=== PATIENT | female | born 1995 | race Asian ===

== ENCOUNTER → 2020-03-28 15:35 | Outpatient (CLI) | payer OTHER, SELFPAY ==
[2020-03-28 17:39] LABS: HIV 1 & 2 Ab/Ag 4th Gen Combo NEGATIVE (NEGATIVE)
== END ==
PROVIDERS: PCP Family Medicine; Referring Provider Family Medicine; Visit Provider Family Medicine
DX: Z34.82 Encounter for supervision of other normal pregnancy, second trimester (principal)
CPT/HCPCS: 36415; 87389

== ENCOUNTER → 2020-04-09 15:33 | Outpatient (CLI) | payer OTHER, SELFPAY ==
--- NOTE | 2020-04-09 15:35 | DI.US.S_ITS ---
PROCEDURE: US OB >= 14 WEEKS FETUS INDICATIONS: Anatomy US please OUTSIDE/PRIOR DATING DATA: Last menstrual period (LMP): 11/18/19 . LMP-based estimated date of delivery (MISAEL): 08/24/20 . First dating scan (date and location): 04/09/20 . Estimated date of delivery (MISAEL) from first dating scan: 08/24/20 . TECHNIQUE: Real-time scanning was performed of the fetus, with image documentation and biometric measurements. Endovaginal scanning: Not performed COMPARISON: None. FINDINGS: General: A single living intrauterine gestation is present. Presentation: Vertex. Placenta: Placental position is posterior , without previa. Amniotic fluid index: 16.7 cm, normal range is 5-24 cm. heart rate: 144 beats per minute. Maternal cervical canal: 5.2 cm long. Normal lower limit is 2.5 cm. biometrics: Biparietal diameter: 4.67 cm, 20 weeks 1 day Head circumference: 16.9 cm, 19 weeks 4 days Abdominal circumference: 14.8 cm, 20 weeks 1 day Femur length: 3.6 cm, 21 weeks 4 days Estimated gestational age from LMP: 20 weeks 3 days Composite gestational age from present scan: 20 weeks 3 days Estimated weight and percentile: 367 g, 57th percentile Measurement variability for biometric dating: +/- 7 days from 14 weeks to 15 weeks 6 days gestation, +/- 10 days from 16 weeks to 21 weeks 6 days gestation, +/- 2 weeks from 22 weeks to 27 weeks 6 days gestation, +/- 3 weeks for 28 weeks gestation or later. weight reference: 4500 g or EFW >90/95% is considered macrosomia or large for gestational age. EFW <10% is small for gestational age. EFW 5% or less is considered intra-uterine growth restriction. Anatomic survey: Neuro: Ventricles are non-dilated at less than 10 mm. Cisterna magna is normal at 3-11 mm. Cerebellum is normal in size and morphology. Nuchal skin fold: Normal at less than 6 mm between 14-21 weeks gestational age. Face: Nose and lips, facial profile are normal. Spine: No evidence for spina bifida. Heart: 4-chambered heart is present, with normal ventricular outflow tracts. Diaphragm: Diaphragm is intact. Stomach: Left-sided stomach is present. Kidneys: No hydronephrosis. Normal is less than 5 mm in 2nd trimester, less than 7 mm in 3rd trimester. Cord: 3-vessel cord has orthotopic insertion. Bladder: Normal in size. Extremities: All 4 extremities identified. IMPRESSION: Single living intrauterine fetus in vertex presentation with a gestational age of 20 weeks and 3 days, concordant with reported LMP as above Normal anatomic survey Dictated by: Jose Camejo M.D. on 04/10/2020 at 9:29 Approved by: Jose Camejo M.D. on 04/10/2020 at 9:40
== END ==
PROVIDERS: PCP Family Medicine; Referring Provider Family Medicine; Visit Provider Family Medicine
DX: Z34.82 Encounter for supervision of other normal pregnancy, second trimester (principal); Z3A.20 20 weeks gestation of pregnancy
CPT/HCPCS: 76811

== ENCOUNTER 2020-05-08 20:21 | Outpatient (CLI) | payer OTHER, SELFPAY | END 2020-05-08 21:35 | disposition home or self-care (01) | LOC: LABOR 20:26 → OB 05-09 09:25 | PROVIDERS: PCP Family Medicine; Referring Provider Family Medicine; Visit Provider Family Medicine | DX: O20.9 Hemorrhage in early pregnancy, unspecified (principal); R10.30 Lower abdominal pain, unspecified; Z3A.24 24 weeks gestation of pregnancy | CPT/HCPCS: 59025; G0378; G0379 ==

== ENCOUNTER → 2020-05-29 15:45 | Outpatient (CLI) | payer OTHER, SELFPAY ==
[2020-05-29 17:29] LABS: Add Manual Diff / Slide Review NO; Basophils Absolute Auto 0 /uL (0-100); Basophils Percent Auto 0.2 % (0-2); Eosinophils Absolute Auto 100 /uL (0-450); Eosinophils Percent Auto 0.8 % (2-4); Hematocrit 33.8 % (36-46); Hemoglobin 11.7 g/dL (12.0-16.0); Lymphocytes Absolute Auto 1600 /uL (1100-4500); Lymphocytes Percent Auto 15.9 % (25-40); Mean Corpuscular HGB Conc 34.8 % (30-36); Mean Corpuscular Volume 97.8 fL (80-100); Monocytes Absolute Auto 300 /uL (0-900); Monocytes Percent Auto 3.4 % (3-14); Neutrophils Absolute Auto 7900 /uL (1500-7000); Neutrophils Percent Auto 79.7 % (50-75); Platelet Count 264 X10^3/uL (150-400); Red Blood Cell Count 3.45 X10^6/uL (4.0-5.2); White Blood Cell Count 9.9 X10^3/uL (4.5-11.0)
[2020-05-29 18:00] LABS: GTT (PREG) 1 Hour PP 50gm Dose 197 mg/dL (76-139)
== END ==
PROVIDERS: PCP Family Medicine; Referring Provider Family Medicine; Visit Provider Family Medicine
DX: Z34.90 Encounter for supervision of normal pregnancy, unspecified, unspecified trimester (principal)
CPT/HCPCS: 36415; 82950; 85025

== ENCOUNTER → 2020-06-08 07:53 | Outpatient (CLI) | payer OTHER, SELFPAY ==
[2020-06-08 08:32] LABS: Glucose Tol Interp,Gestational INTERPRETATION
[2020-06-08 09:36] LABS: Glucose Fasting Gestational 76 mg/dL (76-95)
[2020-06-08 11:07] LABS: Glucose 1 Hour Gest 137 mg/dL (76-180)
[2020-06-08 11:55] LABS: Glucose 2 Hour Gest 129 mg/dL (76-155)
[2020-06-08 13:36] LABS: Glucose 3 Hour Gest 137 mg/dL (76-140)
== END ==
PROVIDERS: PCP Family Medicine; Referring Provider Family Medicine; Visit Provider Family Medicine
DX: R73.09 Other abnormal glucose (principal); Z34.90 Encounter for supervision of normal pregnancy, unspecified, unspecified trimester
CPT/HCPCS: 36415; 82951; 82952

== ENCOUNTER → 2020-07-25 15:51 | Outpatient (CLI) | payer OTHER, SELFPAY ==
[2020-07-26 11:57] LABS: Strep Grp B PCR NEG for Grp B Strep
== END ==
PROVIDERS: PCP Family Medicine; Visit Provider Family Medicine
DX: Z34.90 Encounter for supervision of normal pregnancy, unspecified, unspecified trimester (principal); Z3A.35 35 weeks gestation of pregnancy
CPT/HCPCS: 87653

== ENCOUNTER → 2020-08-01 16:56 | Outpatient (CLI) | payer OTHER, SELFPAY ==
--- NOTE | 2020-08-01 16:58 | DI.US.S_ITS ---
PROCEDURE: US OB LIMITED INDICATIONS: size < dates, growth and [place] OUTSIDE/PRIOR DATING DATA: Last menstrual period (LMP): 11/18/19 . LMP-based estimated date of delivery (MISAEL): 08/24/20 . First dating scan (date and location): 04/09/20 . Estimated date of delivery (MISAEL) from first dating scan: 08/24/20 . TECHNIQUE: Real-time scanning was performed of the fetus, with image documentation and biometric measurements. Biophysical profile was also obtained. Endovaginal scanning: Not performed COMPARISON: [facility], OB >= 14 WEEKS FETUS, 04/09/2020, 15:53. FINDINGS: General: A single living intrauterine gestation is present. Presentation: Vertex. Placenta: Placental position is posterior , without previa. Amniotic fluid index: 16.3 cm, normal range is 5-24 cm. heart rate: 140 beats per minute. Maternal cervical canal: Not seen biometrics: Biparietal diameter: 8.8 cm, 35 weeks, five days Head circumference: 31.9 cm, 36 weeks, 0 days Abdominal circumference: 30.1 cm, 34 weeks, one day Femur length: 6.9 cm, 35 weeks, three days Estimated gestational age from initial scan: 36 weeks, five days. Composite gestational age from present scan: 35 weeks, two days Estimated weight and percentile: 2525 g, 12th percentile Measurement variability for biometric dating: +/- 7 days from 14 weeks to 15 weeks 6 days gestation, +/- 10 days from 16 weeks to 21 weeks 6 days gestation, +/- 2 weeks from 22 weeks to 27 weeks 6 days gestation, +/- 3 weeks for 28 weeks gestation or later. weight reference: 4500 g or EFW >90/95% is considered macrosomia or large for gestational age. EFW <10% is small for gestational age. EFW 5% or less is considered intra-uterine growth restriction. IMPRESSION: 1. Single living intrauterine with symmetric growth. 2. Composite gestational age from today's scan is one week and three days behind the initially assigned gestational age. 3. Amniotic fluid index is normal. 4. Estimated weight is at the 12th percentile. Dictated by: Isabell Rodriguez M.D. on 08/02/2020 at 9:44 Approved by: Isabell Rodriguez M.D. on 08/02/2020 at 9:50
== END ==
PROVIDERS: PCP Family Medicine; Referring Provider Family Medicine; Visit Provider Family Medicine
DX: O26.843 Uterine size-date discrepancy, third trimester (principal); Z3A.35 35 weeks gestation of pregnancy
CPT/HCPCS: 76815

== ENCOUNTER 2020-08-21 08:29 | Inpatient (IN) | payer OTHER, SELFPAY ==
[2020-08-21 12:13] LABS: Add Manual Diff / Slide Review NO; Basophils Absolute Auto 0 /uL (0-100); Basophils Percent Auto 0.2 % (0-2); Eosinophils Absolute Auto 100 /uL (0-450); Eosinophils Percent Auto 0.6 % (2-4); Hematocrit 34.6 % (36-46); Hemoglobin 11.8 g/dL (12.0-16.0); Lymphocytes Absolute Auto 1400 /uL (1100-4500); Lymphocytes Percent Auto 12.6 % (25-40); Mean Corpuscular Hemoglobin 33.7 PG (26-34); Mean Corpuscular Volume 99.1 fL (80-100); Monocytes Absolute Auto 500 /uL (0-900); Monocytes Percent Auto 4.7 % (3-14); Neutrophils Absolute Auto 8800 /uL (1500-7000); Neutrophils Percent Auto 81.9 % (50-75); Platelet Count 229 X10^3/uL (150-400); Red Cell Distribution Width 13.2 % (11.6-14.8); White Blood Cell Count 10.7 X10^3/uL (4.5-11.0)
[2020-08-21 12:24] VITALS: BP 121/70
[2020-08-21 12:26] LABS: COVID19 -Nasal RAPID Negative (Negative)
--- NOTE | 2020-08-21 12:35 | P.HPOB_ITS ---
OB HPI Date/Time Date of admission: 08/21/20 Date Patient Seen: 08/21/20 Time Patient Seen: 12:30 History of Present Condition Chief complaint: labor check : 3 Para: 1 Estimated Date of Delivery: 08/24/20 Estimated Gestational Age (weeks): 39w4d Narrative: Kavitha Boateng is a 25 year old at 39w4d here with regular painful contractions. Pt reports contractions began around 4:30am, increasing in frequency and strength since then. She denies any LOF. Minimal pink-tinge on her tissue. She is feeling her baby move regularly. History of Present care: good care, initiated at week # (6) and pounds weight gain (35) Dating criteria: LMP confirmed by 1st trimester US Ultrasounds: normal 1st trimester US and normal mid trimester US Obstetrical complications: none Medical complications: none Preadmission Labs Blood type: B (+) positive -: Antibody screen: negative, GBS status: negative, HBsAG: negative, HIV: negative and RPR/VDLR: negative -: Chlamydia screen: not detected and Gonorrhea screen: not detected -: Rubella: immune and Varicella: immune HCT: 33.8 HCAB: negative 1 hr GTT: 197 3 hr GTT: 1 hr (137), 2 hr (129) and 3 hr (137) Fasting blood glucose: 76 Prior (ies) History: 02/16/18 - at 41wks, 6lb3oz male, episiotomy performed Evaluation Evaluation Baseline heart rate: 120 Variability: Moderate (11-25) monitor accelerations: Present Monitor Decelerations: Absent Contraction Frequency (minutes): 5 Uterine Contraction Intensity: Strong/Firm Status: Category l Cervical dilation (cm): 5 Cervical effacement (%): 90 station: 0 Laboratory results: Laboratory Tests 08/21/20 08/21/20 08/21/20 11:50 11:50 12:00 WBC 10.7 RBC 3.50 L Hgb 11.8 L Hct 34.6 L MCV 99.1 MCH 33.7 MCHC 34.0 RDW 13.2 Plt Count 229 Neut % (Auto) 81.9 H Lymph % (Auto) 12.6 L [place] % (Auto) 4.7 Eos % (Auto) 0.6 L Baso % (Auto) 0.2 Neut # (Auto) 8800 H Lymph # (Auto) 1400 [place] # (Auto) 500 Eos # (Auto) 100 Baso # (Auto) 0 SARS-CoV-2 (PCR) Cancelled Negative [facility] Medical History (Updated 03/28/20 @ 10:42 by Isabella Luna, LOAN) Eczema Foot fracture, left History of episiotomy (~02/16/18) (spontaneous vaginal delivery) (~02/16/18) Surgical History (Updated 03/28/20 @ 10:43 by Isabella Luna, LOAN) No history of previous surgery Family History (Updated 03/28/20 @ 10:37 by Isabella Luna RN) Mother No known health problems Father Family estrangement Grandmother Diabetes mellitus Grandfather Prostate cancer Grandmother Cancer Family estrangement Grandfather Family estrangement Social History marital status: number of children: 1 household members: spouse and children lives independently: Yes pets and animals: No education level: college (Ass Degree and some extra College credits) occupational status: unemployed current occupational exposures/hazards: No deisy/catholic: [employer] special deisy needs: No Smoking Status: Never smoker Meds Home Medications and Allergies Home Medications Medication Instructions Recorded Confirmed Type acetaminophen 325 mg tablet 325 mg PO ONCE PRN 03/28/20 08/21/20 History prenat.vits,monika,[id number] 1 tab PO DAILY 03/28/20 08/21/20 History Double Electric Breast Pump and #1 ea 07/11/20 08/21/20 Rx supplies Allergies Allergy/AdvReac Type Severity Reaction Status Date / Time cinnamon Allergy Severe Difficulty Verified 08/01/20 15:25 breathing, increased heart rate peanut Allergy Severe Hard to Verified 08/01/20 15:25 breath, increased body temp and increased heart rate chicken derived Allergy Intermediate Eczema Verified 08/01/20 15:25 ears and belly button : flares up w/intake of chicken Exam Vital Signs (past 8 hours): - 08/21/20 12:24 Blood Pressure 121/70 Const General: cooperative, healthy appearing and comfortable Orientation: alert, awake and oriented x3 Resp Effort & Inspection: normal respiratory effort Auscultation: clear to auscultation bilaterally Cardio Rate: regular rate Rhythm: regular rhythm Heart Sounds: S1 normal, S2 normal and no murmurs GI Inspection: non-distended Palpation: soft and No tender Other: gravid Presentation: vertex Estimated Weight (lbs): 6 Extrem General: no clubbing, cyanosis or edema Objective Labs Result Diagrams: 08/21/20 11:50 Labs: Laboratory Results - last 24 hr 08/21/20 08/21/20 08/21/20 11:50 11:50 12:00 WBC 10.7 RBC 3.50 L Hgb 11.8 L Hct 34.6 L MCV 99.1 MCH 33.7 MCHC 34.0 RDW 13.2 Plt Count 229 Neut % (Auto) 81.9 H Lymph % (Auto) 12.6 L [place] % (Auto) 4.7 Eos % (Auto) 0.6 L Baso % (Auto) 0.2 Neut # (Auto) 8800 H Lymph # (Auto) 1400 [place] # (Auto) 500 Eos # (Auto) 100 Baso # (Auto) 0 SARS-CoV-2 (PCR) Cancelled Negative Assessment and Plan Assessment and Plan Assessment and Plan narrative: 25yo at 39w4d here in active labor. Rh positive, GBS negative. - Expectant management, anticipate - GBS negative, no prophylaxis indicated - FHT reassuring - Epidural for pain control when desired
[2020-08-21] MEDS: OXYTOCIN PREMIX 30 UNIT/500 ML PLAST..BAG 200 UNIT IV (17:28)
--- NOTE | 2020-08-21 18:05 | PM.OBPNLAB ---
Date/Time Date Patient Seen: 08/21/20 Time Patient Seen: 16:30 Pain Control Pain control: epidural Pelvic Exam Dilation (cm): 6 Effacement (%): 90 station: 0 Amniotic membrane status: Ruptured Comments: After informed consent, AROM performed with production of clear fluid Contractions Monitor mode: External Contraction frequency (min): 6 Contraction pattern: Regular Contraction intensity: Strong/Firm Status status: Category l Heart Rate Baseline: 120 Monitor Accelerations: Absent Monitor Decelerations: Absent Monitor Variability: Moderate Assessment and Plan Comments: 25yo at 39w4d here in active labor. AROM performed with production of clear fluid. Rh positive, GBS negative. - Expectant management, anticipate - Due to spacing of contractions, will initiate pitocin to augment labor - GBS negative, no prophylaxis indicated - FHT reassuring - Epidural for pain control working effectively
[2020-08-21] MEDS: LACTATED RINGERS 1,000 ML 100 ML IV (18:17)
[2020-08-21] MEDS: FENT 2MCG/ML BUPIV 0.125% EPI 200 MCG/100 ML PLAST..BAG 10 MCG EPIDURAL (18:20)
--- NOTE | 2020-08-21 20:50 | PM.OBPRVD ---
Labor & Delivery Delivery date: 08/21/20 Estimated blood loss (mL): 200 Complications: None Narrative: PROCEDURE: at 39w4d presented in active labor and was admitted to Labor and Delivery. The patient progressed through the 1st stage over 3 hours. Pain was controlled with an epidural. AROM was performed with production of clear fluid. Pitocin was started due to spacing of contractions, but then stopped after only going to a maximum of 1mU due to variable decels. The patient progressed through the 2nd stage over 47 minutes and delivered a viable male infant with APGARs 9/9 at 20:29 via without complications. The cord was clamped and cut after it stopped pulsating. The perineum and vagina were inspected with right labial laceration and 1st degree perineal lacerations repaired with 3-O Chromic.. PREPROCEDURE DIAGNOSIS: Intrauterine at 39w4d GBS negative RH positive POSTPROCEDURE DIAGNOSIS: Intrauterine at 39w4d, delivered Same as preprocedure PROCEDURE: Spontaneous vaginal delivery INDUCTION: No LABOR AUGMENTATION: AROM, pitocin ROM APPEARANCE: Clear BABY A DELIVERY TIME: 20:29 BABY A OUTCOME: Viable BABY A SEX: Male BABY A WEIGHT: 6lb5.4oz BABY A PRESENTATION: Vertex BABY A POSITION: JULIO BABY A NUCHAL CORD: None BABY A # CORD VESSELS: 3 BABY A CORD GASES OBTAINED: No PLACENTA DELIVERY TIME: 20:32 PLACENTAL DELIVERY TYPE: Spontaneous PLACENTA APPEARANCE: Intact Mouth Of [place] Baby 1: gender: Male score (1 min): 9 score (5 min): 9 Plan for aftercare: Routine care
[2020-08-21] MEDS: IBUPROFEN 600 MG TABLET PO (21:26)
[2020-08-22] MEDS: IBUPROFEN 600 MG TABLET PO ×3 (03:34→16:40)
[2020-08-22] MEDS: DERMOPLAST SPRAY 20% 60 ML 1 SPRAY TOP (09:52)
[2020-08-22] MEDS: PRENATAL VIT,CALC/IRON/FOLIC 1 TABLET 1 TAB PO (09:53)
[2020-08-22] MEDS: DOCUSATE 100 MG CAPSULE PO (09:53)
[2020-08-22] MEDS: ACETAMINOPHEN 325 MG TABLET 650 MG PO (12:26)
--- NOTE | 2020-08-22 15:45 | P.DS_ITS ---
Discharge Providers Provider Date of admission: 08/21/20 08:29 Discharge Date: 08/22/20 Primary care physician: Kirsten Nj MD Consults: 08/22/20 20:51 Consult to Strategic Marketing Manager Routine Comment: Discharge provider: Kirsten Nj MD Summary Hospital Course Date Patient Seen: 08/22/20 Time Patient Seen: 07:45 Diagnoses: 39w4d gestation GBS negative Rh positive Hospital Course: The patient presents in active labor. She received an epidural for pain control. AROM was performed with reduction of clear fluid. She progressed to complete and had a spontaneous vaginal delivery of a viable baby boy had 8:29 p.m. on 08/21/2020. A right labial in first-degree perineal laceration with a repaired. There were no complications with delivery. , the patient had no complications. Of the time discharge was voiding, ambulating, passing flatus without difficulty. Her lochia was decreasing appropriately. Her pain was well controlled. She was breast-feeding with good latch. She will follow up in clinic in 6 weeks for check. She is undecided regarding contraception. Peripartum Data Infant Delivery Method: Natural Vaginal Laceration Description: Perineal - 1st Degree and Labial Episiotomy description: None Procedures: Spontaneous vaginal delivery complications: none Meyers Chuck 1: Gender: Male Discharge Diagnosis (1) (spontaneous vaginal delivery): Status: Inactive Status at Discharge Cognitive/behavioral status at discharge: oriented Functional status at discharge: independent ambulation Overall status at discharge: patient is progressing back to baseline Time Spent with Patient Time attestation: Total time spent providing and/or coordinating discharge services: Time spent: Greater than 30 minutes Objective Labs Result Diagrams: 08/21/20 11:50 Exam Narrative Exam Narrative: Gen: NAD, sitting comfortably in bed, appears well CV: RRR, no murmurs Resp: clear to auscultation bilaterally Abd: soft, appropriately tender, fundus firm and below the umbilicus, nondistended Ext: no edema Discharge Plan Discharge Plan Patient Disposition: Home Discharge orders & Medications Prescriptions: New docusate sodium [DOK] 100 mg Capsule 100 mg PO DAILY Qty: 30 RF: 0 ibuprofen 600 mg Tablet 600 mg PO Q6HR PRN (Reason: Pain, Mild (1-3)) Qty: 30 RF: 0 Continued (DME) Double Electric Breast Pump and supplies See Rx Instructions .ROUTE .MEDSUPPLY Qty: 1 RF: 0 prenat.vits,monika,uzx-vwag-fgziv Tablet 1 tab PO DAILY RF: 0 acetaminophen [Tylenol] 325 mg tablet 325 mg PO ONCE PRN (Reason: Pain, Moderate) RF: 0 Follow up/Referrals: Kirsten Nj MD [Primary Care Provider] - 6 Weeks (Please scheduled 6 week post- check with Dr Nj when you are at the office on Thursday for the appointment.) Diet/Activity/Treatments Diet: Diet as Tolerated and Regular Skin/Wound/Dressing Care Report to your healthcare provider any signs of infection, such as:: chills, fever, increased pain and unusual drainage Visit Report/Discharge Packet Instructions: DI for Labor and Delivery, Vaginal Stand Alone Forms: Discharge: Care Visit Report Forms: Patient Portal/API, Stroke Signs & Symptoms Discharge Data Primary Care Provider: Kirsten Nj
[2020-08-22 16:40] VITALS: BP 118/64; PULSE 77; RESP 16; TEMP 36.1
== END 2020-08-22 16:55 | disposition home or self-care (01) | DRG 807 ==
PROVIDERS: Admitting Provider Family Medicine; PCP Family Medicine; Referring Provider Family Medicine; Visit Provider Family Medicine
DX: O62.1 Secondary uterine inertia (principal); Z37.0 Single live birth; Z3A.39 39 weeks gestation of pregnancy; O76 Abnormality in fetal heart rate and rhythm complicating labor and delivery; O70.0 First degree perineal laceration during delivery
CPT/HCPCS: 01967; 36415; 59050; 59410; 85025; 86850; 86900; 86901; 87635; C9803; G0379; J2590